=== PATIENT | female | born 1980 | race Caucasian/White ===

== ENCOUNTER 2021-09-16 19:19 | Emergency (ER) | payer SELFPAY ==
[2021-09-17 13:13] LABS: SARS-CoV-2 PCR by NAA Not Detected (NotDetected)
== END 2021-09-16 20:55 | disposition home or self-care (01) ==
LOC: ERS 19:19
DX: O21.9 Vomiting of pregnancy, unspecified (principal); O99.891 Other specified diseases and conditions complicating pregnancy; R51.9 Headache, unspecified; R05.9 Cough, unspecified; R68.83 Chills (without fever); O99.331 Smoking (tobacco) complicating pregnancy, first trimester; F17.210 Nicotine dependence, cigarettes, uncomplicated; Z20.822 Contact with and (suspected) exposure to COVID-19; Z3A.08 8 weeks gestation of pregnancy
CPT/HCPCS: 99284; U0003; U0005

== ENCOUNTER 2022-12-06 21:40 | Inpatient (IN) | payer SELFPAY ==
[2022-12-06 23:21] LABS: #Basophils 0.1 thou/uL (0.0-0.2); #Eosinphils 0.1 thou/uL (0.0-0.7); #Lymphocytes 3.4 thou/uL (1.20-3.40); #Monocytes 1.2 thou/uL (0.11-0.59); #Neutrophils 12.2 thou/uL (1.40-6.50); %Basophils 0.4 % (0.0-1.0); %Eosinophils 0.5 % (0.0-10.0); %Lymphocytes 19.9 % (21.0-51.0); %Monocytes 6.9 % (0.0-10.0); %Neutrophils 72.3 % (42.0-75.0); Hemoglobin 12.1 g/dL (12.0-16.0); Mean Corpuscular HGB CONC 34.2 g/dL (32.0-36.0); Mean Corpuscular Hemoglobin 30.2 pg (27.0-31.0); Mean Corpuscular Volume 88.2 fl (78.0-98.0); Mean Platelet Volume 8.3 fL (7.4-10.4); Platelet Count 290 10x3/uL (130-400); RBC Distribution Width 11.5 % (11.5-14.5); Red Blood Cell (RBC) Count 3.99 mill/uL (4.20-5.40); White Blood Cell (WBC) Count 16.9 10x3/uL (4.8-10.8)
[2022-12-06 23:44] LABS: ALT (SGPT) 27 U/L (8-55); AST (SGOT) 15 U/L (5-34); Albumin 3.4 g/dL (3.5-5.0); Alkaline Phosphatase 214 U/L (40-110); Anion Gap 12 mmol/L (10-20); BUN (Urea Nitrogen) 7 mg/dL (7.0-18.7); Bilirubin, Total 0.5 mg/dL (0.2-1.2); Calc. Creatinine Clearance 0 mL/min (70-130); Calcium 8.8 mg/dL (7.8-10.44); Carbon Dioxide 24 mmol/L (22-29); Chloride 97 mmol/L (98-107); Estimated GFR 96; Globulin 3.9 g/dL (2.4-3.5); Glucose 359 mg/dL (70-105); Potassium 3.6 mmol/L (3.5-5.1); Protein, Total 7.3 g/dL (6.0-8.3); Sodium 129 mmol/L (136-145)
[2022-12-07] MEDS ORDERED: Cefepime 2 GM VIAL ONE (00:14)
[2022-12-07] MEDS ORDERED: Vancomycin 1 GM/200 ML (FROZEN) BAG ONE (02:23)
[2022-12-07] MEDS ORDERED: Clindamycin/D5W 600 MG in Premix Bag 1 BAG IVPB SCH (03:00)
[2022-12-07] MEDS ORDERED: Dextrose 5% in Water 1,000 ML IV PRN (03:48)
[2022-12-07] MEDS ORDERED: Dextrose 50% Abboject 50 ML SYRINGE SLOW IVP PRN (03:48)
[2022-12-07] MEDS ORDERED: Acetaminophen 325 MG TAB PO PRN (03:54)
[2022-12-07 04:38] VITALS: BMI 32.3
[2022-12-07] MEDS: Nicotine 14 MG PATCH TD SCH (04:56)
[2022-12-07] MEDS: Sodium Chloride 0.9% 1,000 ML IV SCH ×3 (05:37→21:19)
[2022-12-07] MEDS: HumaLOG 300 UNITS/3 ML VIAL SC PRN ×3 (05:40→20:00)
[2022-12-07] MEDS ORDERED: VANCOMYCIN 1.75 GM/350 ML BAG IVPB SCH (09:00)
[2022-12-07] MEDS: Heparin 5,000 UNITS/ML VIAL SC SCH ×3 (10:27→21:27)
[2022-12-07] MEDS: Vancomycin 1.5 GRAM/300 ML BAG 1.5 GM in Premix Bag 1 BAG IVPB SCH ×2 (10:28→21:21)
[2022-12-07] MEDS: Cefepime 2 GM in Sodium Chloride 0.9% 100 ML IVPB SCH (13:54)
[2022-12-07] MEDS ORDERED: Magnevist 469MG/ML 20 ML VIAL ONE (14:55)
[2022-12-07] MEDS: Insulin Glargine 30 UNITS/0.3 ML VIAL SC SCH (21:25)
[2022-12-08] MEDS: Cefepime 2 GM in Sodium Chloride 0.9% 100 ML IVPB SCH ×2 (01:54→14:33)
[2022-12-08] MEDS: Nicotine 14 MG PATCH TD SCH (04:25)
[2022-12-08] MEDS: HumaLOG 300 UNITS/3 ML VIAL SC PRN ×3 (06:14→17:39)
[2022-12-08 06:33] LABS: #Basophils 0.1 thou/uL (0.0-0.2); #Eosinphils 0.1 thou/uL (0.0-0.7); #Lymphocytes 3.5 thou/uL (1.20-3.40); #Monocytes 1.1 thou/uL (0.11-0.59); #Neutrophils 9.2 thou/uL (1.40-6.50); %Basophils 0.5 % (0.0-1.0); %Eosinophils 1.1 % (0.0-10.0); %Neutrophils 65.6 % (42.0-75.0); Hemoglobin 10.9 g/dL (12.0-16.0); Mean Corpuscular Hemoglobin 31.2 pg (27.0-31.0); Mean Corpuscular Volume 89.1 fl (78.0-98.0); Mean Platelet Volume 8.5 fL (7.4-10.4); Platelet Count 282 10x3/uL (130-400); RBC Distribution Width 11.7 % (11.5-14.5); White Blood Cell (WBC) Count 14.1 10x3/uL (4.8-10.8)
[2022-12-08 06:53] LABS: ALT (SGPT) 29 U/L (8-55); AST (SGOT) 23 U/L (5-34); Albumin 2.8 g/dL (3.5-5.0); Alkaline Phosphatase 266 U/L (40-110); Anion Gap 12 mmol/L (10-20); BUN (Urea Nitrogen) 8 mg/dL (7.0-18.7); Bilirubin, Total 0.3 mg/dL (0.2-1.2); Calc. Creatinine Clearance 163 mL/min (70-130); Calcium 8.1 mg/dL (7.8-10.44); Carbon Dioxide 21 mmol/L (22-29); Chloride 106 mmol/L (98-107); Estimated GFR 113; Globulin 3.5 g/dL (2.4-3.5); Glucose 187 mg/dL (70-105); Potassium 3.5 mmol/L (3.5-5.1); Protein, Total 6.3 g/dL (6.0-8.3); Sodium 135 mmol/L (136-145)
[2022-12-08 08:47] LABS: Hemoglobin A1c 12.1 % (4.0-6.0)
[2022-12-08] MEDS: Vancomycin 1.5 GRAM/300 ML BAG 1.5 GM in Premix Bag 1 BAG IVPB SCH (09:56)
[2022-12-08] MEDS: Heparin 5,000 UNITS/ML VIAL SC SCH ×3 (09:56→21:51)
[2022-12-08] MEDS: Sodium Chloride 0.9% 1,000 ML IV SCH (10:03)
[2022-12-08 11:00] LABS: Vancomycin, Trough 11.8 ug/mL
[2022-12-08] MEDS: glipiZIDE 5 MG TAB PO SCH (17:38)
[2022-12-08] MEDS: metFORMIN 500 MG TAB PO SCH (17:39)
[2022-12-08] MEDS: Insulin Glargine 30 UNITS/0.3 ML VIAL SC SCH (21:51)
[2022-12-08] MEDS: HYDROcodone/Acetaminophen 5/325 mg Tablet PO PRN (21:52)
[2022-12-09] MEDS: VANCOMYCIN 1.75 GM/500 ML BAG 1.75 GM in Premix Bag 1 BAG IVPB SCH ×3 (00:13→21:47)
[2022-12-09] MEDS: Cefepime 2 GM in Sodium Chloride 0.9% 100 ML IVPB SCH ×2 (00:13→12:34)
[2022-12-09] MEDS: Nicotine 14 MG PATCH TD SCH (04:35)
[2022-12-09] MEDS: glipiZIDE 5 MG TAB PO SCH ×2 (06:35→17:18)
[2022-12-09] MEDS: metFORMIN 500 MG TAB PO SCH ×2 (09:40→17:18)
[2022-12-09] MEDS: Heparin 5,000 UNITS/ML VIAL SC SCH ×3 (09:40→21:45)
[2022-12-09] MEDS: HYDROcodone/Acetaminophen 5/325 mg Tablet PO PRN (10:21)
[2022-12-09] MEDS: Insulin Glargine 30 UNITS/0.3 ML VIAL SC SCH (21:40)
[2022-12-10] MEDS: Cefepime 2 GM in Sodium Chloride 0.9% 100 ML IVPB SCH ×2 (00:52→13:44)
[2022-12-10] MEDS: Nicotine 14 MG PATCH TD SCH (06:21)
[2022-12-10 06:54] LABS: #Basophils 0.1 thou/uL (0.0-0.2); #Eosinphils 0.3 thou/uL (0.0-0.7); #Lymphocytes 3.1 thou/uL (1.20-3.40); #Monocytes 0.9 thou/uL (0.11-0.59); #Neutrophils 7.2 thou/uL (1.40-6.50); %Basophils 0.6 % (0.0-1.0); %Eosinophils 2.2 % (0.0-10.0); %Lymphocytes 26.8 % (21.0-51.0); %Monocytes 7.8 % (0.0-10.0); %Neutrophils 62.6 % (42.0-75.0); Hemoglobin 9.7 g/dL (12.0-16.0); Mean Corpuscular HGB CONC 34.1 g/dL (32.0-36.0); Mean Corpuscular Hemoglobin 30.6 pg (27.0-31.0); Mean Corpuscular Volume 89.5 fl (78.0-98.0); Mean Platelet Volume 8.3 fL (7.4-10.4); Platelet Count 348 10x3/uL (130-400); RBC Distribution Width 11.9 % (11.5-14.5); Red Blood Cell (RBC) Count 3.18 mill/uL (4.20-5.40); White Blood Cell (WBC) Count 11.5 10x3/uL (4.8-10.8)
[2022-12-10 07:05] LABS: Anion Gap 10 mmol/L (10-20); BUN (Urea Nitrogen) 7 mg/dL (7.0-18.7); Calc. Creatinine Clearance 171 mL/min (70-130); Calcium 8.3 mg/dL (7.8-10.44); Carbon Dioxide 21 mmol/L (22-29); Chloride 106 mmol/L (98-107); Estimated GFR 114; Glucose 114 mg/dL (70-105); Potassium 3.4 mmol/L (3.5-5.1); Sodium 134 mmol/L (136-145)
[2022-12-10] MEDS: glipiZIDE 5 MG TAB PO SCH ×2 (08:37→15:48)
[2022-12-10] MEDS: metFORMIN 500 MG TAB PO SCH ×2 (08:37→17:42)
[2022-12-10] MEDS: Heparin 5,000 UNITS/ML VIAL SC SCH ×3 (08:38→20:55)
[2022-12-10] MEDS ORDERED: Potassium Chloride 20 MEQ TAB PO SCH (09:45)
[2022-12-10 11:14] LABS: Vancomycin, Trough 23.6 ug/mL
[2022-12-10] MEDS: VANCOMYCIN 1.75 GM/500 ML BAG 1.75 GM in Premix Bag 1 BAG IVPB SCH (13:38)
[2022-12-10] MEDS: Vancomycin 1 GM in Premix Bag 1 BAG IVPB SCH (13:43)
[2022-12-10] MEDS: HYDROcodone/Acetaminophen 5/325 mg Tablet PO PRN (15:46)
[2022-12-10] MEDS: Insulin Glargine 30 UNITS/0.3 ML VIAL SC SCH (20:55)
[2022-12-10] MEDS ORDERED: Vancomycin 1 GM in Premix Bag 1 BAG IVPB SCH (22:00)
[2022-12-11] MEDS: Cefepime 2 GM in Sodium Chloride 0.9% 100 ML IVPB SCH (01:00)
[2022-12-11] MEDS: Vancomycin 1 GM in Premix Bag 1 BAG IVPB SCH (02:00)
[2022-12-11] MEDS: Nicotine 14 MG PATCH TD SCH (05:00)
[2022-12-11] MEDS: metFORMIN 500 MG TAB PO SCH (08:12)
[2022-12-11] MEDS: Heparin 5,000 UNITS/ML VIAL SC SCH (08:12)
[2022-12-11] MEDS: glipiZIDE 5 MG TAB PO SCH (08:12)
[2022-12-11] MEDS: HYDROcodone/Acetaminophen 5/325 mg Tablet PO PRN (10:38)
[2022-12-11 13:03] VITALS: BP 149/81; TEMP 98.3
== END 2022-12-11 13:30 | disposition home or self-care (01) | DRG 854 ==
LOC: ERS 21:40 → SURG B 12-07 02:39
PROVIDERS: ADMIT Student in an Organized Health Care Education/Training Program; ATTEND Family Medicine
PROC: 0JDQ0ZZ Extraction of Right Foot Subcutaneous Tissue and Fascia, Open Approach (ICD-10-PCS; principal; 2022-12-10)
DX: A41.9 Sepsis, unspecified organism (principal); E11.52 Type 2 diabetes mellitus with diabetic peripheral angiopathy with gangrene; L03.115 Cellulitis of right lower limb; L02.611 Cutaneous abscess of right foot; E11.65 Type 2 diabetes mellitus with hyperglycemia; F17.210 Nicotine dependence, cigarettes, uncomplicated; E87.6 Hypokalemia; K21.9 Gastro-esophageal reflux disease without esophagitis; E11.621 Type 2 diabetes mellitus with foot ulcer; L97.519 Non-pressure chronic ulcer of other part of right foot with unspecified severity; E11.628 Type 2 diabetes mellitus with other skin complications; L03.031 Cellulitis of right toe
CPT/HCPCS: 36415; 36416; 80048; 80053; 80202; 83036; 83605; 85025; 86140; 87040; 96374; 96375; 97139; A9579; J0692; J1644; J1815; J3370; J3370-JW; J3490; J7050

== ENCOUNTER 2023-01-14 15:56 | Inpatient (IN) | payer SELFPAY ==
[2023-01-14 16:52] LABS: #Basophils 0.1 thou/uL (0.0-0.2); #Eosinphils 0.2 thou/uL (0.0-0.7); #Monocytes 0.6 thou/uL (0.11-0.59); #Neutrophils 7.5 thou/uL (1.40-6.50); %Basophils 0.5 % (0.0-1.0); %Eosinophils 2.1 % (0.0-10.0); %Lymphocytes 27.2 % (21.0-51.0); %Monocytes 4.8 % (0.0-10.0); %Neutrophils 65.1 % (42.0-75.0); Hemoglobin 11.9 g/dL (12.0-16.0); Mean Corpuscular HGB CONC 32.4 g/dL (32.0-36.0); Mean Corpuscular Hemoglobin 28.3 pg (27.0-31.0); Mean Corpuscular Volume 87.2 fl (78.0-98.0); Mean Platelet Volume 9.4 fL (7.4-10.4); Platelet Count 462 10x3/uL (130-400); Red Blood Cell (RBC) Count 4.21 mill/uL (4.20-5.40); White Blood Cell (WBC) Count 11.6 10x3/uL (4.8-10.8)
[2023-01-14] MEDS ORDERED: Cefepime 2 GM VIAL ONE (17:26)
[2023-01-14 18:11] LABS: Anion Gap 16 mmol/L (10-20); BUN (Urea Nitrogen) 12 mg/dL (7.0-18.7); Calc. Creatinine Clearance 0 mL/min (70-130); Carbon Dioxide 20 mmol/L (22-29); Chloride 104 mmol/L (98-107); Potassium 4.2 mmol/L (3.5-5.1); Sodium 136 mmol/L (136-145)
[2023-01-14 18:12] LABS: ALT (SGPT) 21 U/L (8-55); AST (SGOT) 15 U/L (5-34); Albumin 3.8 g/dL (3.5-5.0); Alkaline Phosphatase 118 U/L (40-110); Bilirubin, Total 0.4 mg/dL (0.2-1.2); CRP (Inflammatory) 2.83 mg/dL (= or < 0.5); Calcium 9.3 mg/dL (7.8-10.44); Estimated GFR 95; Globulin 3.7 g/dL (2.4-3.5); Glucose 88 mg/dL (70-105); Protein, Total 7.5 g/dL (6.0-8.3)
[2023-01-14] MEDS ORDERED: Dextrose 5% in Water 1,000 ML IV PRN (18:21)
[2023-01-14] MEDS ORDERED: HumaLOG 300 UNITS/3 ML VIAL SC PRN ×2 (18:21)
[2023-01-14] MEDS ORDERED: Dextrose 50% Abboject 50 ML SYRINGE SLOW IVP PRN (18:21)
[2023-01-14] MEDS ORDERED: Ondansetron ODT 4 MG TAB PO PRN (18:23)
[2023-01-14] MEDS ORDERED: Ondansetron PF 4 MG/2 ML Vial IVP PRN (18:23)
[2023-01-14] MEDS ORDERED: Lactated Ringer's 1,000 ML IV SCH (18:30)
[2023-01-14] MEDS ORDERED: hydrALAZINE 20 MG/ML VIAL SLOW IVP PRN (19:50)
[2023-01-14] MEDS ORDERED: Heparin 5,000 UNITS/ML VIAL SC SCH (21:00)
[2023-01-14 21:17] VITALS: BMI 30.4
[2023-01-14] MEDS ORDERED: VANCOMYCIN 2 GRAM/500 ML BAG 2 GM in Premix Bag 1 BAG IVPB SCH (22:00)
[2023-01-15] MEDS: Cefepime 2 GM in Sodium Chloride 0.9% 100 ML IVPB SCH ×3 (01:24→17:29)
[2023-01-15 06:03] LABS: #Basophils 0.1 thou/uL (0.0-0.2); #Eosinphils 0.2 thou/uL (0.0-0.7); #Monocytes 0.7 thou/uL (0.11-0.59); #Neutrophils 6.5 thou/uL (1.40-6.50); %Basophils 0.6 % (0.0-1.0); %Eosinophils 2.3 % (0.0-10.0); %Lymphocytes 26.4 % (21.0-51.0); %Monocytes 7.2 % (0.0-10.0); %Neutrophils 63.1 % (42.0-75.0); Hemoglobin 10.2 g/dL (12.0-16.0); Mean Corpuscular HGB CONC 32.2 g/dL (32.0-36.0); Mean Corpuscular Hemoglobin 28.5 pg (27.0-31.0); Mean Corpuscular Volume 88.5 fl (78.0-98.0); Mean Platelet Volume 8.9 fL (7.4-10.4); Platelet Count 483 10x3/uL (130-400); RBC Distribution Width 13.1 % (11.5-14.5); Red Blood Cell (RBC) Count 3.58 mill/uL (4.20-5.40); White Blood Cell (WBC) Count 10.3 10x3/uL (4.8-10.8)
[2023-01-15 06:11] LABS: Calcium 8.7 mg/dL (7.8-10.44); Chloride 105 mmol/L (98-107); Potassium 3.8 mmol/L (3.5-5.1); Sodium 134 mmol/L (136-145)
[2023-01-15 06:17] LABS: Albumin 3.4 g/dL (3.5-5.0)
[2023-01-15 06:20] LABS: Globulin 3.7 g/dL (2.4-3.5); Glucose 101 mg/dL (70-105); Protein, Total 7.1 g/dL (6.0-8.3)
[2023-01-15 06:22] LABS: Anion Gap 16 mmol/L (10-20); Bilirubin, Total 0.3 mg/dL (0.2-1.2); Carbon Dioxide 18 mmol/L (22-29)
[2023-01-15 06:23] LABS: Alkaline Phosphatase 100 U/L (40-110); Calc. Creatinine Clearance 156 mL/min (70-130); Estimated GFR 112
[2023-01-15 06:24] LABS: BUN (Urea Nitrogen) 11 mg/dL (7.0-18.7)
[2023-01-15 06:25] LABS: AST (SGOT) 15 U/L (5-34)
[2023-01-15 06:26] LABS: ALT (SGPT) 18 U/L (8-55)
[2023-01-15] MEDS: VANCOMYCIN 1.25 GM/250 ML BAG 1.25 GM in Premix Bag 1 BAG IVPB SCH ×2 (07:00→15:01)
[2023-01-15] MEDS: Lactated Ringer's 1,000 ML IV SCH ×2 (07:15→17:29)
[2023-01-15] MEDS ORDERED: Midazolam HCl 2 mg/2 ml Vial ONE (09:34)
[2023-01-15] MEDS ORDERED: Propofol 500 MG/50 ML VIAL ONE (09:35)
[2023-01-15] MEDS ORDERED: fentaNYL PF 100 MCG/2 ML SYRINGE ONE (09:35)
[2023-01-15] MEDS ORDERED: Ondansetron PF 4 MG/2 ML Vial ONE (09:54)
[2023-01-15] MEDS ORDERED: Ondansetron HCl/PF 4 MG/2 ML Vial IVP PRN (10:33)
[2023-01-15] MEDS ORDERED: Promethazine HCl 25 MG/ML VIAL IM PRN (10:33)
[2023-01-15] MEDS ORDERED: Meperidine HCl/PF 25 MG/ML VIAL SLOW IVP PRN (10:33)
[2023-01-15] MEDS ORDERED: fentaNYL 50 mcg/mL 1 mL Vial ONE (10:42)
[2023-01-15] MEDS ORDERED: Ketorolac Tromethamine 30 MG/ML VIAL IVP PRN (22:31)
[2023-01-15 22:45] LABS: Vancomycin, Trough 30.9 ug/mL
[2023-01-15] MEDS ORDERED: Ketorolac Tromethamine 30 MG/ML VIAL IVP SCH (22:45)
[2023-01-15] MEDS: HYDROcodone/Acetaminophen 5/325 mg Tablet PO PRN (22:52)
[2023-01-15] MEDS: Acetaminophen 325 MG TAB PO PRN (22:53)
[2023-01-16] MEDS: Lactated Ringer's 1,000 ML IV SCH ×3 (02:45→15:33)
[2023-01-16] MEDS: Cefepime 2 GM in Sodium Chloride 0.9% 100 ML IVPB SCH ×3 (02:45→17:42)
[2023-01-16] MEDS ORDERED: Cyclobenzaprine 10 MG TAB PO PRN (02:56)
[2023-01-16] MEDS ORDERED: Cyclobenzaprine 10 MG TAB PO SCH (03:00)
[2023-01-16] MEDS: HYDROcodone/Acetaminophen 5/325 mg Tablet PO PRN (03:02)
[2023-01-16] MEDS ORDERED: Gabapentin 300 MG CAP PO SCH (03:15)
[2023-01-16 05:41] LABS: #Eosinphils 0.2 thou/uL (0.0-0.7); #Monocytes 0.7 thou/uL (0.11-0.59); %Basophils 0.5 % (0.0-1.0); %Eosinophils 2.4 % (0.0-10.0); %Lymphocytes 30.3 % (21.0-51.0); %Monocytes 8.2 % (0.0-10.0); %Neutrophils 58.3 % (42.0-75.0); Hemoglobin 9.2 g/dL (12.0-16.0); Mean Corpuscular HGB CONC 32.9 g/dL (32.0-36.0); Mean Corpuscular Hemoglobin 28.7 pg (27.0-31.0); Mean Corpuscular Volume 87.2 fl (78.0-98.0); Mean Platelet Volume 9.2 fL (7.4-10.4); Platelet Count 441 10x3/uL (130-400); RBC Distribution Width 13.2 % (11.5-14.5); Red Blood Cell (RBC) Count 3.21 mill/uL (4.20-5.40); White Blood Cell (WBC) Count 8.6 10x3/uL (4.8-10.8)
[2023-01-16 06:07] LABS: ALT (SGPT) 13 U/L (8-55); AST (SGOT) 9 U/L (5-34); Alkaline Phosphatase 81 U/L (40-110); Anion Gap 10 mmol/L (10-20); BUN (Urea Nitrogen) 16 mg/dL (7.0-18.7); Bilirubin, Total 0.2 mg/dL (0.2-1.2); Calc. Creatinine Clearance 136 mL/min (70-130); Calcium 8.5 mg/dL (7.8-10.44); Carbon Dioxide 22 mmol/L (22-29); Chloride 107 mmol/L (98-107); Estimated GFR 98; Globulin 3.2 g/dL (2.4-3.5); Glucose 192 mg/dL (70-105); Potassium 4.2 mmol/L (3.5-5.1); Protein, Total 6.2 g/dL (6.0-8.3); Sodium 135 mmol/L (136-145)
[2023-01-16] MEDS: VANCOMYCIN 1.25 GM/250 ML BAG 1.25 GM in Premix Bag 1 BAG IVPB SCH (06:54)
[2023-01-16] MEDS: Gabapentin 300 MG CAP PO SCH ×2 (08:31→20:49)
[2023-01-16 08:54] LABS: Vancomycin, Random 15.8 ug/mL (See Comment)
[2023-01-16] MEDS ORDERED: Vancomycin 1 GM VIAL IVPB SCH (10:00)
[2023-01-16] MEDS: Vancomycin HCl 750 MG in Sodium Chloride 0.9% 250 ML 250 ML IVPB SCH ×2 (10:20→17:42)
[2023-01-16] MEDS ORDERED: INSULIN GLARGINE HUM REC ANLOG SQ SCH (21:00)
[2023-01-16] MEDS ORDERED: Insulin Glargine 30 UNITS/0.3 ML VIAL SC SCH (21:00)
[2023-01-16] MEDS ORDERED: [UNRECOGNIZED DRUG - OTHER] SQ SCH (21:00)
[2023-01-17] MEDS: Lactated Ringer's 1,000 ML IV SCH ×3 (00:29→08:14)
[2023-01-17] MEDS: Cefepime 2 GM in Sodium Chloride 0.9% 100 ML IVPB SCH ×3 (01:30→11:51)
[2023-01-17] MEDS: Vancomycin HCl 750 MG in Sodium Chloride 0.9% 250 ML 250 ML IVPB SCH ×2 (01:31→11:51)
[2023-01-17 05:21] LABS: #Basophils 0.1 thou/uL (0.0-0.2); #Eosinphils 0.2 thou/uL (0.0-0.7); #Monocytes 0.7 thou/uL (0.11-0.59); #Neutrophils 5.2 thou/uL (1.40-6.50); %Basophils 0.6 % (0.0-1.0); %Eosinophils 2.1 % (0.0-10.0); %Lymphocytes 31.9 % (21.0-51.0); %Monocytes 7.3 % (0.0-10.0); %Neutrophils 57.9 % (42.0-75.0); Hemoglobin 9.7 g/dL (12.0-16.0); Mean Corpuscular HGB CONC 31.1 g/dL (32.0-36.0); Mean Corpuscular Hemoglobin 28.4 pg (27.0-31.0); Mean Corpuscular Volume 91.2 fl (78.0-98.0); Platelet Count 453 10x3/uL (130-400); RBC Distribution Width 13.2 % (11.5-14.5); Red Blood Cell (RBC) Count 3.42 mill/uL (4.20-5.40)
[2023-01-17 05:50] LABS: ALT (SGPT) 14 U/L (8-55); AST (SGOT) 11 U/L (5-34); Albumin 3.3 g/dL (3.5-5.0); Alkaline Phosphatase 92 U/L (40-110); Anion Gap 9 mmol/L (10-20); BUN (Urea Nitrogen) 13 mg/dL (7.0-18.7); Bilirubin, Total Less than 0.2 mg/dL (0.2-1.2); Calc. Creatinine Clearance 149 mL/min (70-130); Calcium 8.9 mg/dL (7.8-10.44); Carbon Dioxide 22 mmol/L (22-29); Chloride 107 mmol/L (98-107); Estimated GFR 109; Globulin 3.4 g/dL (2.4-3.5); Glucose 136 mg/dL (70-105); Potassium 4.4 mmol/L (3.5-5.1); Protein, Total 6.7 g/dL (6.0-8.3); Sodium 134 mmol/L (136-145)
[2023-01-17 09:26] LABS: Vancomycin, Trough 19.4 ug/mL
[2023-01-17] MEDS: Gabapentin 300 MG CAP PO SCH (09:42)
[2023-01-17] MEDS: Acetaminophen 325 MG TAB PO PRN (12:46)
[2023-01-17] MEDS: HYDROcodone/Acetaminophen 5/325 mg Tablet PO PRN (12:46)
[2023-01-17 14:49] VITALS: BP 121/82; TEMP 97.6
== END 2023-01-17 17:09 | disposition home or self-care (01) | DRG 854 ==
LOC: ERS 15:56 → SJJU 18:21
PROVIDERS: ADMIT Family Medicine; ATTEND Family Medicine
PROC: 0Y6M0Z9 Detachment at Right Foot, Partial 1st Ray, Open Approach (ICD-10-PCS; principal; 2023-01-14)
PROC: 3E03329 Introduction of Other Anti-infective into Peripheral Vein, Percutaneous Approach (ICD-10-PCS; 2023-01-14)
DX: A41.9 Sepsis, unspecified organism (principal); M86.171 Other acute osteomyelitis, right ankle and foot; L97.519 Non-pressure chronic ulcer of other part of right foot with unspecified severity; E10.621 Type 1 diabetes mellitus with foot ulcer; E10.69 Type 1 diabetes mellitus with other specified complication; F17.210 Nicotine dependence, cigarettes, uncomplicated; Z79.84 Long term (current) use of oral hypoglycemic drugs; Z79.4 Long term (current) use of insulin
CPT/HCPCS: 36415; 36416; 80053; 80202; 83605; 85025; 85652; 86140; 87040; 87070; 87077; 87186; 87205; 88305; 88311; 96361; 96365; 97139; J0692; J1644; J1650; J1815; J1885; J2250; J2405; J2704; J3010; J3370; J3490; J7050; J7120

== ENCOUNTER 2023-01-18 19:46 | Emergency (ER) | payer SELFPAY | END 2023-01-18 21:49 | disposition home or self-care (01) | LOC: ERS 19:46 | DX: T85.698A Other mechanical complication of other specified internal prosthetic devices, implants and grafts, initial encounter (principal); E11.9 Type 2 diabetes mellitus without complications; F17.210 Nicotine dependence, cigarettes, uncomplicated | CPT/HCPCS: 99282 ==